=== PATIENT | female | born 1950 | race Hispanic/Latino ===

== ENCOUNTER 2017-12-17 09:53 | Outpatient (CLI) | payer MEDICARE | END 2017-12-17 09:54 | disposition home or self-care (01) | LOC: BICMAMMO 09:53 | PROVIDERS: ATTEND Nurse Practitioner Family | DX: Z12.31 Encounter for screening mammogram for malignant neoplasm of breast (principal) | CPT/HCPCS: 77063; 77067 ==

== ENCOUNTER 2018-06-30 09:51 | Outpatient (CLI) | payer MEDICARE ==
--- NOTE | 2018-06-30 10:52 | RAD ---
THREE VIEWS LEFT SHOULDER: History: Left shoulder pain. FINDINGS: AP internally, externally scapular Y views left shoulder obtained. There is no evidence of left shoulder fractures, subluxations, or bony lesions. IMPRESSION: Normal three views left shoulder. POS: H
== END 2018-06-30 09:52 | disposition home or self-care (01) ==
LOC: RAD-FRANK 09:51
PROVIDERS: ATTEND Nurse Practitioner Family
DX: M25.512 Pain in left shoulder (principal)

== ENCOUNTER 2019-01-10 09:03 | Outpatient (CLI) | payer MEDICARE ==
--- NOTE | 2019-01-10 10:20 | MRI ---
[facility] Upper Ext Jt Lt WO Con History: [M75.4 impingement syndrome the left shoulder] Comparison: Shoulder radiographs June 2018 Findings: Biceps tendon: Moderate extra-articular biceps tenosynovitis. There is perching of the val ps tendon along the lesser tuberosity. There is interstitial tearing of the intra-articular tendon. P artial tear superior glenohumeral ligament portion of the biceps nba. Labrum: Mild free edge fraying superior labrum. No displaced tear. Rotator cuff: There is mild tendinosis supraspinatus and infraspinous tendons. There is a focal 50% u ndersurface partial tear mid 4 mm fiber of the supraspinatus tendon 7 mm from the footprint. Soft tissues: Large subacromial/subdeltoid bursa effusion with extensive synovitis. Loss of normal leong bcoracoid fat. Mild fibrosis of the rotator interval. Muscles: There is low-grade edema along the craniad fibers of the supraspinatus muscle likely trackin g from an interstitial type tear of the bursal surface. This muscle atrophy. Bones: Type I acromion. Normal glenoid version. Impression: 1. Moderate subacromial/subdeltoid bursal effusion with extensive synovitis. 2. Mild bursal surface fraying supraspinatus tendon with an interstitial type delamination tear, low- grade, with fluid extending along the cranial-most fibers of the supraspinatus muscle. No muscle atro phy. 3. 50% thickness focal undersurface partial tear mid 4 mm fibers of the supraspinatus 7 mm on the grant tprint. No full-thickness perforation is appreciated. 4. Marked fibrosis of the rotator interval with loss of normal subcoracoid fat can be seen in capsuli tis in the correct clinical setting. 5. Moderate extra-articular tenosynovitis of the biceps tendon with intra-articular interstitial tear ing. Focal perching of the biceps tendon along the lesser tuberosity due to a partial tear of the sup erior glenohumeral ligament portion of the biceps nba.
== END 2019-01-10 09:04 | disposition home or self-care (01) ==
LOC: BICMRI 09:03
PROVIDERS: ATTEND Orthopaedic Surgery
DX: M75.42 Impingement syndrome of left shoulder (principal); M65.812 Other synovitis and tenosynovitis, left shoulder; M75.112 Incomplete rotator cuff tear or rupture of left shoulder, not specified as traumatic; M75.82 Other shoulder lesions, left shoulder; S43.492A Other sprain of left shoulder joint, initial encounter

== ENCOUNTER 2019-01-31 08:43 | Outpatient (CLI) | payer MEDICARE ==
--- NOTE | 2019-01-31 11:23 | BD ---
DEXA BONE MINERAL DENSITOMETRY EXAM, DENSITY STUDY: HISTORY: Postmenopausal. FINDINGS: Lumbar Spine: BMD (g/cm2) L1 1.070 T-Score: +0.7 L2 1.012 T-Score: -0.1 L3 1.102 T-Score: +0.2 L4 1.122 T-Score: +0.6 L1-L4 1.079 T-Score: +0.3 Femoral Neck: 0.829 T-Score: -0.2 Total Femur: 1.074 T-Score: +1.1 Impression: Normal bone mineral density of the lumbar spine and left femoral neck. POS: TPC
== END 2019-01-31 08:44 | disposition home or self-care (01) ==
LOC: BICMAMMO 08:43
PROVIDERS: ATTEND Nurse Practitioner Family
DX: Z13.820 Encounter for screening for osteoporosis (principal); E55.9 Vitamin D deficiency, unspecified
CPT/HCPCS: 77080

== ENCOUNTER 2019-04-04 09:38 | Outpatient (CLI) | payer MEDICARE ==
--- NOTE | 2019-04-04 16:55 | MMO ---
Bilateral MAMMO Bilat Screen [facility]. CLINICAL HISTORY: Patient is 68 years old and is seen for screening. The patient has no family history of breast cancer. The patient has no personal history of cancer. VIEWS: The views performed were: bilateral craniocaudal with tomosynthesis and bilateral mediolateral oblique with tomosynthesis. FILMS COMPARED: The present examination has been compared to prior imaging studies performed at [facility] on 08/17/2013 and 12/17/2017, and at [facility] on 12/22/2014 and 12/28/2015. MAMMOGRAM FINDINGS: There are scattered fibroglandular densities. There are no suspicious masses, suspicious calcifications, or new areas of architectural distortion. IMPRESSION: THERE IS NO MAMMOGRAPHIC EVIDENCE OF MALIGNANCY. A ROUTINE FOLLOW-UP MAMMOGRAM IN 1 YEAR IS RECOMMENDED. THE RESULTS OF THIS EXAM WERE SENT TO THE PATIENT. ACR BI-RADS Category 1 - Negative MAMMOGRAPHY NOTE: 1. A negative mammogram report should not delay a biopsy if a dominant of clinically suspicious mass is present. 2. Approximately 10% to 15% of breast cancers are not detected by mammography. 3. Adenosis and dense breasts may obscure an underlying neoplasm.
== END 2019-04-04 09:39 | disposition home or self-care (01) ==
LOC: BICMAMMO 09:38
PROVIDERS: ATTEND Nurse Practitioner Family
DX: Z12.31 Encounter for screening mammogram for malignant neoplasm of breast (principal)
CPT/HCPCS: 77063; 77067